=== PATIENT | female | born 1975 | race Caucasian/White ===

== ENCOUNTER 2016-11-06 09:05 | Day surgery (SDC) | payer BC ==
[~2016-11-06 09:05] MED LIST: Buffered Lidocaine 1% SYR 3ML* 3 ML/SYR SYRINGE INTRADERM ONE; Dexamethasone IV* 4 MG/ML 1 ML (4 MG) ONE; DiMENhydriNATE IV* 50 MG/ML VIAL ONE; Famotidine IV* 10 MG/ML 2 ML (20 mg) IV ONE; Ketorolac INJ* 30 MG/ML 1 ML VIAL ONE; Lidocaine 2% PF * 5 ML VIAL ONE; Midazolam* 1 MG/ML 5 ML VIAL (5 MG) ONE; Ondansetron INJ* 2 MG/ML VIAL ONE; Propofol* 10 MG/ML 20 ML BTL IV PUSH ONE; ROPIVACAINE 5 MG/ML 30 ML BTL (0.5%) ONE; fentaNYL* 50 MCG/ML 2 ML VIAL (100 MCG VIAL) ONE
[2016-11-06] MEDS ORDERED: Famotidine IV* 10 MG/ML 2 ML (20 mg) ONE (09:41)
[2016-11-06] MEDS ORDERED: ceFAZolin 2 GM PREMIX(*) 2 GM/50 ML BAG IVPB ONE (09:41)
[2016-11-06] MEDS ORDERED: Acetaminophen TAB* 325 MG PO PRN (12:06)
[2016-11-06] MEDS ORDERED: DiMENhydriNATE IV* 50 MG/ML VIAL IV PUSH PRN (12:06)
[2016-11-06] MEDS ORDERED: oxyCODONE TAB* 5 MG TAB PO PRN (12:06)
[2016-11-06] MEDS ORDERED: HYDROmorphone* 1 MG/ML 1 ML SYR IV PRN (12:06)
[2016-11-06 14:47] VITALS: BP 134/97
--- NOTE | 2016-11-07 13:21 | OP ---
CC: Primary Care Physician. OPERATIVE REPORT: DATE OF OPERATION: 11/06/16. DATE OF : 71. SURGEON: Vinny Khanna MD. STAVE BOLT EQUALIZER: KORIN Wang. An data entry assistant was needed for the entirety of the case to help with positioning, retraction and was utilized throughout all portions of the case. ANESTHESIOLOGIST: Dr. Bradley. ANESTHESIA: General interscalene block. PRE-OP DIAGNOSIS: Left shoulder possible re-tear of a rotator cuff repair. POST-OPERATIVE DIAGNOSIS: Left shoulder re-tear of the rotator cuff repair. OPERATIVE PROCEDURE: 1. Left shoulder arthroscopy with debridement. 2. Removal of foreign body. 3. Revision rotator cuff repair in double row fashion. 4. Revision subacromial decompression. INDICATIONS: Ms. Gardenia Andrews is a 40-year-old female, who underwent left shoulder arthroscopy with rotator cuff repair, biceps tenotomy, in March 2016. She was doing well with the recovery and then she fell and landed very hard on it. This was about 3 months postoperatively. We did an MR arthrogram which demonstrated a the rotator cuff repair to be intact. She tried at the rehab and continued to have persistent pain. She was more than 6 months postoperatively, continuously having night pain and it was directly impacting her activities daily of living. She could not lift. She did have poor range of motion. She failed injections, physical therapy, and elected to proceed with operative management. DESCRIPTION OF PROCEDURE: The patient was greeted in the preoperative area by the attending surgeon, and correct extremity was marked and consent was confirmed. The patient underwent interscalene nerve block by the anesthesiologist, after which the patient was brought back to the operating suite, where she was placed in the supine position on the operating table. She then underwent general anesthesia with LMA intubation and after which the patient was positioned carefully in the right lateral decubitus position with all bony prominences padded. An axillary roll was placed. The left arm is draped unsterilely with about 14 pounds of traction. The left shoulder was then prepped and draped in the usual sterile fashion, beginning with chlorhexidine soap scrub and alcohol wipe, and final prep with ChloraPrep. After appropriate surgical pause indicating side, site of procedure, and administration of antibiotics; standard posterolateral portal was made sharply with an #11 blade and the scope was introduced into the joint. The joint was examined. There were grade 0 to 1 changes in the glenoid and humeral head and the anterior- posterior labrum had mild fraying. Subscapularis was intact. The anterior portal was made in an outside-in fashion. The biceps had already been tenotomized. The undersurface of the rotator cuff had fraying and a suture was apparent that appeared to be lax. The undersurface had partial thickness tear which was about 50% or so although it was only a partial tear and not a full thickness tear. The inferior recess was intact. Posterior ligament had mild fraying. Shaver was then used to debride the anterior, posterior, and superior labrum and to start to debride the foreign body. Once the debridement was complete the attention was directed to the subacromial space. The scope was repositioned into the subacromial space. The lateral poral was made in outside-in fashion. The shaver was used to debride the bursa that was apparent. The rotator cuff appeared to be intact. The sutures were not even visible initially, but the area where the previous tear was identified and then probed, the tissue quality was poor and it looked more like scarred healing. At this point, the revision decompression was done. The electrocautery device was used to skeletonize the acromion and the small anterior lateral portion was debrided back using the bur. All this debris and tissue were removed from the shoulder at this point. Attention was directed to the rotator cuff. The 11- blade was used to complete the tear. This was extended little bit more posterior from where the previous tear was. The sutures were sharply identified and loosened, remnants of blue and white suture were removed. Finally the knots were removed with the grasper in its entirety. The greater tuberosity was then prepared in the usual fashion with the shaver, electrocautery as well as the rasp. The rotator cuff was debrided back as well. The cuff was then mobilized and found appropriately be restored over the footprint. At this point a decision made to do a repair. Through a stab incision two 4.75 Healicoil anchors were placed in a medial row. The sutures were passed in horizontal mattress configuration. These were then tied down. One limb of each tied knot was then passed through. The fourth suture lost purchase and tore through the cuff; therefore, a separate free suture was then passed horizontally through the posterior tendon and secured through the lateral row anchor along with the remaining sutures from the medial row. The lateral row multifix anchor was then secured with an excellent purchase. Final images were obtained. The rotator cuff was appropriately approximated. All loose debris and fluids were removed from the joint. The portals were closed with 3-0 nylon. Sterile dressings were applied. A Cryo/Cuff and UltraSling were applied. She was awoken from anesthesia and transferred to PACU in stable condition. POSTOPERATIVE PLAN: She will be nonweightbearing for 6 weeks. She will be in the sling for 6 weeks. She will be allowed to work on elbow, hand, and wrist range of motion. She will be discharged on pain medication and antibiotics. DVT prophylaxis was considered and because she had a previous history DVT we placed her back on Lovenox for 10-day period. She also has a boot from a stress fracture for her leg and there is a concern that she is at little higher risk for DVT due to that injury as well. I will see the patient back in 10 to 14 days. [id number]/[facility] #: [id number] CRISTI
== END 2016-11-06 15:05 | disposition home or self-care (01) ==
LOC: OR 09:05
PROVIDERS: ATTEND Orthopaedic Surgery
DX: S46.012A Strain of muscle(s) and tendon(s) of the rotator cuff of left shoulder, initial encounter (principal); Z86.718 Personal history of other venous thrombosis and embolism; Z79.01 Long term (current) use of anticoagulants; W19.XXXA Unspecified fall, initial encounter; Y92.9 Unspecified place or not applicable
CPT/HCPCS: C1713; J0690; J1100; J1240; J1885; J2250; J2405; J2704; J2795; J3010

== ENCOUNTER 2019-02-03 07:20 | Inpatient (IN) | payer BC ==
[~2019-02-03 07:20] MED LIST changes: -Buffered Lidocaine 1% SYR 3ML* 3 ML/SYR SYRINGE INTRADERM ONE; +Buffered Lidocaine 1% SYRIN* 1 ML/SYRINGE INTRADERM ONE; -Dexamethasone IV* 4 MG/ML 1 ML (4 MG) ONE; +Dexamethasone TAB* 4 MG PO ONE; +DiMENhydriNATE IV* 50 MG/ML VIAL IV PUSH PRN; -DiMENhydriNATE IV* 50 MG/ML VIAL ONE; -Ketorolac INJ* 30 MG/ML 1 ML VIAL ONE; +Lactated Ringers 1000 ML Bag* 1,000 ML IV SCH; -Lidocaine 2% PF * 5 ML VIAL ONE; -Midazolam* 1 MG/ML 5 ML VIAL (5 MG) ONE; +Naloxone* 0.4 MG/ML 1 ML VIAL IV PRN; -Ondansetron INJ* 2 MG/ML VIAL ONE; +Ondansetron ODT TAB* 4 MG PO ONE; +PROCHLORPERAZINE INJ 5 MG/ML 2 ML VIAL IV PRN; -Propofol* 10 MG/ML 20 ML BTL IV PUSH ONE; -ROPIVACAINE 5 MG/ML 30 ML BTL (0.5%) ONE; +Scopolamine 1.5 mg* PATCH TRANSDERM ONE; -fentaNYL* 50 MCG/ML 2 ML VIAL (100 MCG VIAL) ONE
[2019-02-03] MEDS ORDERED: KETAMINE HCL* 50 MG/ML 10 ML VIAL ONE (07:56)
[2019-02-03] MEDS ORDERED: Midazolam* 1 MG/ML 5 ML VIAL (5 MG) ONE (07:56)
[2019-02-03] MEDS ORDERED: fentaNYL* 50 MCG/ML 5 ML VIAL (250 MCG VIAL) ONE (07:56)
[2019-02-03] MEDS ORDERED: Atracurium* 10 MG/ML 10 ML VIAL ONE (07:57)
[2019-02-03] MEDS ORDERED: ceFAZolin 1 GM ADVAN(*) 1 GM ADDV.VIAL IVPB ONE (07:59)
[2019-02-03] MEDS ORDERED: Famotidine IV* 10 MG/ML 2 ML (20 mg) ONE (07:59)
[2019-02-03] MEDS ORDERED: Dexamethasone TAB* 4 MG ONE (07:59)
[2019-02-03] MEDS ORDERED: Ondansetron ODT TAB* 4 MG ONE (07:59)
[2019-02-03] MEDS ORDERED: Heparin VIAL(*) 5000 UNITS/ML VIAL (FIVE THOUSAND) ONE (07:59)
[2019-02-03] MEDS ORDERED: Buffered Lidocaine 1% SYRIN* 1 ML/SYRINGE INTRADERM ONE (07:59)
[2019-02-03] MEDS ORDERED: ceFAZolin 2 GM in NS PREMIX(*) 2 GM/100 ML BAG IVPB ONE (08:00)
[2019-02-03] MEDS ORDERED: Scopolamine 1.5 mg* PATCH ONE (08:41)
[2019-02-03] MEDS ORDERED: Bupivacaine 0.25% EPI 200,000* 30 ML SDV ONE (09:13)
[2019-02-03] MEDS ORDERED: Propofol* 10 MG/ML 20 ML BTL ONE (09:46)
[2019-02-03] MEDS ORDERED: PROCHLORPERAZINE INJ 5 MG/ML 2 ML VIAL ONE ×2 (09:46→11:31)
[2019-02-03] MEDS ORDERED: Lidocaine 2% PF * 5 ML VIAL ONE (09:47)
[2019-02-03] MEDS ORDERED: Acetaminophen IV 1GM/100ML * 100 ML ONE (09:47)
[2019-02-03] MEDS ORDERED: HYDROmorphone INJ1* 1 MG/ML SYRINGE ONE ×2 (09:57→11:25)
[2019-02-03] MEDS ORDERED: Glycopyrrolate IV* 0.2 MG/ML 1 ML VIAL ONE (10:48)
[2019-02-03] MEDS ORDERED: Neostigmine Methylsulfate* 1 MG/ML 10 ML VIAL (1 mg/ml) ONE (10:48)
[2019-02-03] MEDS ORDERED: diPHENhydraMINE IV* 50 MG/ML 1 ml VIAL (BENADRYL) SLOW PUSH PRN (11:09)
[2019-02-03] MEDS: HYDROmorphone INJ1* 1 MG/ML SYRINGE IV PRN ×5 (11:27→11:48)
[2019-02-03] MEDS ORDERED: DiMENhydriNATE IV* 50 MG/ML VIAL ONE (12:04)
[2019-02-03] MEDS ORDERED: fentaNYL* 50 MCG/ML 2 ML VIAL (100 MCG VIAL) ONE (12:22)
[2019-02-03] MEDS: fentaNYL* 50 MCG/ML 2 ML VIAL (100 MCG VIAL) IV PRN ×4 (12:22→12:31)
[2019-02-03] MEDS: Lactated Ringers 1000 ML Bag* 1,000 ML IV SCH ×2 (14:19→20:19)
[2019-02-03] MEDS: Ondansetron INJ* 2 MG/ML VIAL IV PRN (18:47)
[2019-02-03] MEDS: HYDROmorphone INJ1* 1 MG/ML SYRINGE IV SLOW PU PRN (19:29)
[2019-02-03] MEDS: Heparin VIAL(*) 5000 UNITS/ML VIAL (FIVE THOUSAND) SUBCUT SCH (21:02)
[2019-02-03] MEDS: Famotidine IV* 10 MG/ML 2 ML (20 mg) IV SLOW PU SCH (21:06)
--- NOTE | 2019-02-03 22:50 | OP ---
CC: Primary Care Doctor; [facility] * DATE OF OPERATION: 02/03/19 - ROOM #353 DATE OF : 71 SURGEON: Lionel Castillo MD ARMOR SENIOR SERGEANT: Liza Leos NP ANESTHESIOLOGIST: Dr. Dove. ANESTHESIA: General anesthesia. PRE-OP DIAGNOSIS: Clinically severe obesity. POST-OP DIAGNOSIS: Clinically severe obesity. OPERATIVE PROCEDURE: Laparoscopic sleeve gastrectomy. BLOOD LOSS: Less than 100 cc. IV FLUIDS: Less than 2 L of crystalloid fluid given. SPECIMENS: Portion of stomach. DRAINS: None. COUNTS: Lap pad count and instrument count correct at the end of the procedure. COMPLICATIONS: None. DESCRIPTION OF PROCEDURE: Ms. Andrews was identified in the preoperative area. She was marked. Consent was signed. We discussed the case with both her and her again regarding sleeve gastrectomy. Consent was signed. She was then brought to the operating room, placed on the operating room table in supine position. Preoperative antibiotics were given. Sequential devices were placed on bilateral extremities. General anesthesia was induced. The patient' s abdomen was prepped and draped in standard surgical fashion. Time-out was performed. A left upper quadrant incision was made at Eugene's point, this was deepened down to the anterior fascia which was elevated and a Veress needle inserted into the abdominal cavity which was then allowed to insufflate to a pressure of 15 mmHg. The patient tolerated the insufflation well. A 5-mm optical trocar was then inserted through the same site. The Veress needle was removed and there was no evidence of injury from the trocar insertion or from the Veress needle. Review of the abdomen showed no bleeding. Omentum was intact. There were adhesions to the anterior abdominal wall. An additional 5 mm was placed in the left lateral site and this allowed us to take down adhesions of the midline. Once these were down, we could place a 12 mm in the supraumbilical site and then another 12 mm in the right upper quadrant. Table was repositioned to a steep reverse Trendelenburg. A Pelon retractor was inserted through a subxiphoid incision and the liver which had already been adhered somewhat to the anterior abdominal wall, it was retracted anteriorly to the right. This exposed the gastroesophageal fat pad. This fat pad was grasped and retracted towards the right lower quadrant. With both blunt and sharp dissection, we were able to clear up and identify the left crura. Next, a retrogastric tunnel was made along the greater curvature approximately 6 cm proximal to the pylorus. We took the greater curvature vasculature with LigaSure device right up to the angle of His where we previously dissected. Posterior attachments were similarly taken. Next, a sleeve stomach was created using 60-mm purple ARELIS stapling devices with reinforcement, starting at the greater curvature and extending it towards the incisura. Prior to firing this first stapler, we did have anesthesia inserted at 40-Croatian bougie into the distal stomach. We then stayed close to the bougie and completed the stomach in the standard fashion. Bougie was removed. The staple line appeared intact without . Hemostasis was excellent; however, we did see mild oozing at the second to last staple firing. For this reason, I placed Endo Clips at this site for hemostasis. Next, the stomach was placed in the endoscopic retrieval bag. The liver retractor was removed and the liver dropped back down on to the sleeve stomach obscuring the site. We then removed the stomach in its endoscopic retrieval bag through the right upper quadrant port site and reapproximated this fascia with an 0 Vicryl suture using a WECK device. The abdomen was allowed to collapse, trocars were removed under direct vision. Again, hemostasis was excellent and we closed all 5 skin incisions with 4-0 Monocryl subcuticular sutures followed by Steri-Strips and sterile dressing. The patient was woken up in the OR and transferred to the PACU in stable condition. [id number]/[facility] #: [id number] CRISTI
[2019-02-04] MEDS: Ondansetron INJ* 2 MG/ML VIAL IV PRN ×4 (00:48→23:09)
[2019-02-04] MEDS: HYDROmorphone INJ1* 1 MG/ML SYRINGE IV SLOW PU PRN ×4 (02:44→23:09)
[2019-02-04] MEDS: Heparin VIAL(*) 5000 UNITS/ML VIAL (FIVE THOUSAND) SUBCUT SCH ×2 (08:59→21:14)
[2019-02-04] MEDS: Famotidine IV* 10 MG/ML 2 ML (20 mg) IV SLOW PU SCH ×2 (09:00→21:13)
--- NOTE | 2019-02-04 10:23 | PN ---
Progress Note - Progress Note Date of Service: 02/04/19 SOAP: Subjective: [pt seen and examined. continued nausea. Vomited at UGI study. some abdo pain Objective: Temp Pulse Resp BP Pulse Ox 98.6 F 58 18 135/75 100 02/04/19 07:38 02/04/19 07:38 02/04/19 08:00 02/04/19 08:18 02/04/19 08:00 a and ox3 abdo: soft/ ND/ inc tenderness dressings intact ext wnl UGi images reviewed- readiology report P Assessment: POD 1 sleeve gastrectomy Plan: NPO for now pain control OOB incentive spirometer
[2019-02-04] MEDS: D5W 1/2 NS KCl 20 Meq 1000 ML* 1,000 ML IV SCH ×2 (10:56→18:32)
[2019-02-05] MEDS: D5W 1/2 NS KCl 20 Meq 1000 ML* 1,000 ML IV SCH ×3 (02:39→19:34)
[2019-02-05] MEDS: HYDROmorphone INJ1* 1 MG/ML SYRINGE IV SLOW PU PRN (09:44)
[2019-02-05] MEDS: Famotidine IV* 10 MG/ML 2 ML (20 mg) IV SLOW PU SCH ×2 (09:44→21:34)
[2019-02-05] MEDS: Ondansetron INJ* 2 MG/ML VIAL IV PRN (09:44)
[2019-02-05] MEDS: Heparin VIAL(*) 5000 UNITS/ML VIAL (FIVE THOUSAND) SUBCUT SCH ×2 (09:45→21:32)
[2019-02-05] MEDS: Ketorolac INJ* 30 MG/ML 1 ML VIAL IV PUSH SCH ×3 (11:31→23:12)
--- NOTE | 2019-02-05 11:46 | PN ---
Progress Note - Progress Note Date of Service: 02/05/19 SOAP: Subjective: Patient seen and examined. Right upper quadrant abdominal pain. No shortness of breath. Patient is ambulating. No appetite. She has had loose bowel movements. Objective: Temp Pulse Resp BP Pulse Ox 98.2 F 54 16 134/79 99 02/05/19 11:19 02/05/19 11:19 02/05/19 11:19 02/05/19 11:19 02/05/19 11:19 Intake & Output 02/04/19 02/05/19 02/05/19 22:59 06:59 14:59 Intake Total 941 980 990 Output Total 450 1000 1000 Balance 491 -20 -10 Alert and oriented 3, no apparent distress Abdomen: Soft, nondistended, incisional tenderness. Dressings intact. Extremities within normal limits. Assessment: Postoperative day two laparoscopic sleeve gastrectomy Plan: Bariatric clear diet. Discharge planning.
[2019-02-05] MEDS ORDERED: Pantoprazole TAB * 40 MG TAB PO ONE (15:04)
[2019-02-05] MEDS: HYDROcodone/ACET. 7.5/325 LIQ* 15 ML UDC PO PRN (17:16)
[2019-02-06] MEDS: D5W 1/2 NS KCl 20 Meq 1000 ML* 1,000 ML IV SCH (03:40)
[2019-02-06] MEDS: HYDROcodone/ACET. 7.5/325 LIQ* 15 ML UDC PO PRN ×2 (04:48→11:07)
[2019-02-06] MEDS: Ketorolac INJ* 30 MG/ML 1 ML VIAL IV PUSH SCH ×2 (05:44→11:07)
[2019-02-06] MEDS ORDERED: Scopolamine PATCH Remove* 1 NOTE MISC PATCH OFF ONE (06:00)
[2019-02-06] MEDS: Heparin VIAL(*) 5000 UNITS/ML VIAL (FIVE THOUSAND) SUBCUT SCH (08:39)
[2019-02-06] MEDS: Famotidine IV* 10 MG/ML 2 ML (20 mg) IV SLOW PU SCH (08:42)
--- NOTE | 2019-02-06 11:20 | PN ---
Progress Note - Progress Note Date of Service: 02/06/19 Note: Surgery Progress Note S: Patient is feeling well. She had loose stools this morning. She is tolerating bariatric clears and ambulating. Pain is well controlled. No nausea or emesis. O: Vital Signs - 24 hr 02/05/19 02/05/19 02/05/19 15:21 16:00 17:16 Temperature 98 F Pulse Rate 55 Respiratory 16 16 Rate Blood Pressure 102/63 (mmHg) O2 Sat by Pulse 100 100 Oximetry 02/05/19 02/05/19 02/05/19 19:21 21:09 21:36 Temperature 97.3 F Pulse Rate 58 Respiratory 16 20 20 Rate Blood Pressure 118/86 (mmHg) O2 Sat by Pulse 100 Oximetry 02/05/19 02/06/19 02/06/19 23:19 03:10 04:48 Temperature 98.1 F 97.8 F Pulse Rate 51 54 Respiratory 18 16 20 Rate Blood Pressure 107/66 127/77 (mmHg) O2 Sat by Pulse 98 99 Oximetry 02/06/19 02/06/19 08:36 11:07 Temperature 98.2 F Pulse Rate 55 Respiratory 12 16 Rate Blood Pressure 113/77 (mmHg) O2 Sat by Pulse 98 Oximetry Intake & Output 02/05/19 02/06/19 02/06/19 22:59 06:59 14:59 Intake Total 375 979 Output Total 600 400 900 Balance -225 579 -900 Intake: IV Fluids 979 D5W 1/2 NS 20 meq KCL 979 Oral 375 Output: Urine 600 400 900 Other: # Bowel Movements 2 Estimated Stool Amount Small Physical exam: Abd- soft, minimally tender around incisions. Incisions are c/d/i A/P: 43 F POD 3 from lap sleeve gastrectomy, doing well. - DC home today. - All questions answered.
[2019-02-06 12:11] VITALS: BP 132/88
--- NOTE | 2019-02-18 21:26 | DS ---
DISCHARGE SUMMARY: DATE OF ADMISSION: 02/03/19 DATE OF DISCHARGE: 02/06/19 SURGEON: Lionel Castillo M.D. ADMISSION DIAGNOSIS: Morbid obesity. DISCHARGE DIAGNOSIS: Morbid obesity. HOSPITAL COURSE: Ms. Andrews is a very pleasant 43-year-old female who presented for an elective laparoscopic sleeve gastrectomy with Dr. Noe on 02/03/19. Postoperatively, the patient experienced some nausea and on postoperative day #1 , she had an upper GI series performed that showed no evidence of obstruction or an enteric leak after the sleeve gastrectomy. She continued to clinically improve, and on the day of discharge on postoperative day #3, the patient was doing well. She was tolerating a bariatric liquid diet. She had had some loose stools, but this was improving on a day of discharge. She was ambulating on her own and her pain was very well controlled. She was therefore determined to be an appropriate candidate for discharge. PHYSICAL EXAMINATION: Vital signs on discharge temperature is 98.1, pulse is 64 , respiratory rate is 16, O2 sats 99% on room air, blood pressure is 132/88. On physical exam, her abdomen is obese, soft, minimally tender. Incisions were clean, dry, and intact with sterile dressing. DISCHARGE INSTRUCTIONS: The patient was given preprinted bariatric guidelines and instructions for discharge. She was sent home on omeprazole 40 mg p.o. daily and also told that she can resume her home medications. She will follow up with Dr. Noe as an outpatient. DISPOSITION: To home. CONDITION: Good. [id number]/[facility] #: [id number] MTDD
== END 2019-02-06 13:50 | disposition home or self-care (01) | DRG 403 ==
LOC: AA 07:20 → SSU 11:10
PROVIDERS: ADMIT Surgery; ATTEND Surgery
PROC: 0DB64Z3 Excision of Stomach, Percutaneous Endoscopic Approach, Vertical (ICD-10-PCS; principal; 2019-02-03 08:45)
DX: E66.01 Morbid (severe) obesity due to excess calories (principal); M17.9 Osteoarthritis of knee, unspecified; R11.2 Nausea with vomiting, unspecified; G43.009 Migraine without aura, not intractable, without status migrainosus; Z68.38 Body mass index [BMI] 38.0-38.9, adult; Z86.718 Personal history of other venous thrombosis and embolism; Z98.51 Tubal ligation status; Z83.3 Family history of diabetes mellitus; Z82.3 Family history of stroke; Z83.49 Family history of other endocrine, nutritional and metabolic diseases; Z80.8 Family history of malignant neoplasm of other organs or systems
CPT/HCPCS: 43775; 74246; 88307; A9270-GY; J0690; J0780; J1170; J1240; J1644; J1885; J2250; J2405; J2704; J2710; J3010; J8540

== ENCOUNTER 2020-02-17 05:51 | Observation (INO) ==
[2020-02-17] MEDS ORDERED: Buffered Lidocaine 1% SYRIN 1 ml INTRADERM ONE ×2 (06:00→06:31)
[2020-02-17] MEDS ORDERED: Sodium Citrate/Citric Acid LIQ 15 ML UDC PO ONE (06:00)
[2020-02-17] MEDS ORDERED: Lactated Ringers 1000 ml BAG 1,000 ML IV SCH (06:00)
[2020-02-17] MEDS ORDERED: Famotidine IV 10 MG/ML 2 ml VIAL (20 mg) IV SLOW PU ONE (06:00)
[2020-02-17] MEDS ORDERED: ceFOXitin 2 GM IVPREMIX 2 GM/50 ML BAG ONE (06:31)
[2020-02-17] MEDS ORDERED: Sodium Citrate/Citric Acid LIQ 15 ML UDC ONE (06:31)
[2020-02-17] MEDS ORDERED: Heparin 5000 UNITS/ML 1 mL VIAL ONE (06:31)
[2020-02-17] MEDS ORDERED: Famotidine IV 10 MG/ML 2 ml VIAL (20 mg) ONE (06:31)
[2020-02-17] MEDS ORDERED: Metoclopramide 5 MG/ML VIAL (10 mg) ONE (06:48)
[2020-02-17] MEDS ORDERED: Lidocaine 2% PF 5 ML VIAL ONE ×2 (06:48→08:41)
[2020-02-17] MEDS ORDERED: Ondansetron 4 mg VIAL 2 MG/ML 2 ml VIAL ONE ×2 (06:48→09:31)
[2020-02-17] MEDS ORDERED: Propofol 10 MG/ML 20 ML BTL ONE (06:48)
[2020-02-17] MEDS ORDERED: Succinylcholine 200 mg VIAL 20 mg/ml 10 ml VIAL (200 mg) ONE (06:48)
[2020-02-17] MEDS ORDERED: Sevoflurane BOTTLE ONE (06:49)
[2020-02-17] MEDS ORDERED: fentaNYL 250 mcg/5 ml 50 MCG/ML 5 ml VIAL (250 MCG) ONE (06:56)
[2020-02-17] MEDS ORDERED: Midazolam 2 mg/2 ml VIAL 1 mg/ml 2 ml VIAL (2 mg) ONE (06:56)
[2020-02-17] MEDS ORDERED: Dexamethasone IV 4 MG/ML VIAL 1 ml VIAL ONE ×2 (06:59→07:49)
[2020-02-17] MEDS ORDERED: Rocuronium 50 mg VIAL 10 mg/ml 5 ml VIAL (50 mg) ONE (06:59)
[2020-02-17] MEDS ORDERED: Lidocaine 1% w EPI 1:200,000 SDV 30 ML VIAL ONE (07:09)
[2020-02-17] MEDS ORDERED: EPHEDrine (Pressors) 50 MG/ML VIAL ONE (07:55)
[2020-02-17] MEDS ORDERED: Sterile Water for Inj 10 ML ONE (07:55)
[2020-02-17] MEDS ORDERED: Acetaminophen IV 1 GM/100ML 100 ML ONE (08:12)
[2020-02-17] MEDS ORDERED: HYDROmorphone 1 MG/1 ML SYRINGE ONE (08:14)
[2020-02-17] MEDS ORDERED: HYDROmorphone 1 MG/1 ML SYRINGE IV PRN (08:21)
[2020-02-17] MEDS ORDERED: Naloxone 0.4 mg VIAL 0.4 mg/ml 1 ml VIAL IV PRN (08:21)
[2020-02-17] MEDS ORDERED: diPHENhydraMINE IV 50 MG/ML 1 ml VIAL (BENADRYL) IV PRN (08:21)
[2020-02-17] MEDS ORDERED: Ondansetron 4 mg VIAL 2 MG/ML 2 ml VIAL IV PRN (08:21)
[2020-02-17] MEDS ORDERED: DiMENhydriNATE IV 50 mg/ml 1 ml VIAL IV PUSH PRN (08:21)
[2020-02-17] MEDS ORDERED: HYDROmorphone 0.5 MG/0.5 ML SYRINGE IV SLOW PU PRN (09:06)
[2020-02-17] MEDS ORDERED: fentaNYL 100 mcg/2 ml 50 MCG/ML VIAL ONE ×2 (09:26→10:06)
[2020-02-17] MEDS: fentaNYL 100 mcg/2 ml 50 MCG/ML VIAL IV PRN ×5 (09:27→10:08)
[2020-02-17] MEDS: Lactated Ringers 1000 ml BAG 1,000 ML IV SCH ×2 (10:56→19:10)
[2020-02-17] MEDS: oxyCODONE/Acetamin 5/325 mg TAB PO PRN ×3 (12:09→20:05)
[2020-02-17 15:41] LABS: Hematocrit 39 % (35-47); Hemoglobin 13.4 g/dL (12.0-16.0); Mean Corpuscular HGB Conc 35 g/dL (31-36); Mean Corpuscular Hemoglobin 31 pg (27-31); Mean Corpuscular Volume 90 fL (80-97); Mean Platelet Volume 8.5 fL (7.4-10.4); Platelet Count 203 10^3/uL (150-450); Red Cell Distribution Width 13 % (10-15); White Blood Count 10.3 10^3/uL (3.5-10.8)
[2020-02-18] MEDS: Lactated Ringers 1000 ml BAG 1,000 ML IV SCH (03:07)
[2020-02-18] MEDS: oxyCODONE/Acetamin 5/325 mg TAB PO PRN ×2 (03:07→07:55)
[2020-02-18 08:24] VITALS: BP 121/79
== END 2020-02-18 10:12 | disposition home or self-care (01) ==
LOC: SSU 05:51 → OR 05:51
PROVIDERS: ADMIT Obstetrics & Gynecology; ATTEND Obstetrics & Gynecology